=== PATIENT | female | born 1940 | race Caucasian/White ===

== ENCOUNTER 2021-09-23 05:53 | Day surgery (SDC) | payer MEDICARE ==
[2021-09-16 15:42] LABS: BASOPHILS # (AUTO) 0.1 X10'3 (0-0.2); EOSINOPHILS # (AUTO) 0.1 X10'3 (0-0.9); EOSINOPHILS % (AUTO) 1.5 % (0-6); LYMPHOCYTES # (AUTO) 1.6 X10'3 (1.1-4.8); LYMPHOCYTES % (AUTO) 22.2 % (21-51); MEAN CORPUSCULAR HEMOGLOBIN 31.6 PG (27.0-31.0); MEAN CORPUSCULAR HGB CONC 33.6 g/dL (33.0-36.5); MEAN CORPUSCULAR VOLUME 94.3 FL (78-98); NEUTROPHILS # (AUTO) 4.6 X10'3 (1.8-7.7); NEUTROPHILS % (AUTO) 62.3 % (42-75); PRE OP HEMATOCRIT 41.7 % (35.0-45.0); PRE OP PLATELET COUNT 247 X10'3 (140-440); RED BLOOD COUNT 4.43 X10'6 (4.20-5.60); RED CELL DISTRIBUTION WIDTH 13.7 % (11.5-14.5)
[2021-09-16 16:02] LABS: ALBUMIN 3.8 G/DL (3.4-5.0); ALBUMIN/GLOBULIN RATIO 1.2 (1.1-1.5); ALKALINE PHOSPHATASE 67 IU/L (46-116); BLOOD UREA NITROGEN 14 MG/DL (7-18); BUN/CREATININE RATIO 16.5 (6.6-38.0); CALCIUM 8.6 MG/DL (8.5-10.1); CHLORIDE 108 MMOL/L (99-107); CREATININE 0.85 MG/DL (0.40-0.90); PRE OP ALT 18 U/L (30-65); PRE OP ANION GAP 10 (8-16); PRE OP AST 18 U/L (10-37); PRE OP BILIRUB, TOTAL 0.5 MG/DL (0.0-1.0); PRE OP GLUCOSE 80 MG/DL (70-104); PRE OP POTASSIUM 4.3 MMOL/L (3.4-5.1); PRE OP SODIUM 144 MMOL/L (135-145); TOTAL CARBON DIOXIDE 25.9 MMOL/L (24-32); TOTAL PROTEIN 6.9 G/DL (6.4-8.2); eGFR 64 ML/MIN
[~2021-09-23] VITALS: Ht 162.6 cm; Wt 61.7 kg
[~2021-09-23 05:53] MED LIST: NO HOME MEDS; clindamycin-Cleocin 900mg/D5W 50 ML IV ONE; famotidine 20mg tablet PO ONE; ringers solution, lacted 1,000 ML IV SCH
[2021-09-23 07:04] VITALS: BP 119/73
[2021-09-23] MEDS ORDERED: proCHLORperazine 10 MG/2 ml inj IV PRN (08:20)
[2021-09-23] MEDS ORDERED: morphine 4 MG/ML inj SYRINge IV PRN (08:20)
[2021-09-23] MEDS ORDERED: morphine 2 MG/ML inj. syringe IV PRN (08:20)
[2021-09-23] MEDS ORDERED: ringers solution, lacted 1,000 ML IV SCH (08:20)
[2021-09-23] MEDS ORDERED: meperidine/PF 25mg/ml syringe IV PRN ×3 (08:20)
[2021-09-23] MEDS ORDERED: ondansetron/PF 4mg/2ml inj IV PRN (08:20)
[2021-09-23] MEDS ORDERED: fentaNYL/PF 50MCG/1 ML 2ML syringe ONE (08:30)
[2021-09-23] MEDS ORDERED: midazolam 1 mg/ML 2ml injection ONE (08:30)
[2021-09-23] MEDS ORDERED: BUPIVAcaine/PF 2.5mg/ml (0.25%) 10ml vial ONE (08:44)
[2021-09-23 09:07] VITALS: BP 109/69
--- NOTE | 2021-09-23 09:07 | NUR ---
Received from OR via [facility] , accompanied by Anesthesiologist CHANEL and report given by Anesthesiolgist. PATIENT WITH SPLINT TO LEFT UE 3 FINGERS AND THUMB EXPOSED WITH + CARP REFILL. VSS. DENIES PAIN. ICE DONNED IN RR. 20G PIV IN RIGHT UE. NO CO AT THIS TIME. Addendum: 09/23/21 at 0914 by Og Landin RN, RN Amended: Links added.
[2021-09-23 09:20] VITALS: BP 113/71
[2021-09-23 09:30] VITALS: BP 115/68
[2021-09-23 09:40] VITALS: BP 118/70
--- NOTE | 2021-09-23 09:49 | NUR ---
ALL DISCHARGE CRITERIA HAS BEEN MET. VSS, PAIN AT A TOLERABLE LEVEL, VOIDING AND ABLE TO SAFELY AMBULATE AND TRANSFER SELF. IV TAKEN OUT WITHOUT ANY COMPLICATIONS. ALL DISCHARGE INSTRUCTIONS COVERED WITH PATIENT AND ALL QUESTIONS ANSWERED. PATIENT TAKEN OUT VIA WHEELCHAIR TO PERSONAL VEHICLE WHERE FAMILY/FRIEND DROVE PATIENT HOME Addendum: 09/23/21 at 0949 by Og Landin RN, RN Amended: Links added.
== END 2021-09-23 09:47 | disposition home or self-care (01) ==
LOC: PAS 05:53
PROVIDERS: ATTEND Orthopaedic Surgery Hand Surgery
DX: S62.611P Displaced fracture of proximal phalanx of left index finger, subsequent encounter for fracture with malunion (principal); Z87.891 Personal history of nicotine dependence; Z72.89 Other problems related to lifestyle; Z79.899 Other long term (current) drug therapy; Z90.710 Acquired absence of both cervix and uterus; Z88.0 Allergy status to penicillin; X58.XXXD Exposure to other specified factors, subsequent encounter
CPT/HCPCS: 26727; 36415; 80053; 82948; 85025; 93005; A6222; C1713; J2250; J3010; J3490; J7030; J7120; Z7506; Z7512; A4215; A4618; A6449; A7000